=== PATIENT | female | born 1995 | race Caucasian/White ===

== ENCOUNTER 2024-08-20 21:08 | Emergency (ER) | payer MEDICAID, SELFPAY ==
[2024-08-20 21:09] VITALS: BP 142/73; PULSE 139; RESP 20; TEMP 36.9; O2SAT 99; BMI 58.4
[2024-08-20 21:10] VITALS: BP 142/73; PULSE 139; RESP 20; TEMP 36.9; O2SAT 99
--- NOTE | 2024-08-20 21:31 | EDS_ITS ---
HPI <VIRGIE Barney - Last Filed: 08/20/24 21:51> History of Present Illness Chief Complaint: Cough Narrative Narrative: Patient presenting today with a cough she has had over the past 3 weeks. She reports that at times it is productive and she will cough up white phlegm. She reports that she will develop coughing fits that will make her feel short of breath. She is not short of breath at rest. Her daughter was recently sick with similar symptoms. She denies a PMH of any chronic medical conditions. She denies fevers, chills, chest pain, and abdominal pain. PFSH <VIRGIE Barney - Last Filed: 08/20/24 21:51> PFSH Medical History Depression Anxiety PTSD (post-traumatic stress disorder) Polycystic ovary syndrome Hypertension Home Medications ?Medication ?Instructions ?Recorded ?Last Taken ?Type hydrocodone-homatropine 5 mg-1.5 5 ml PO Q6H 4 days #80 mL 08/20/24 Unknown Rx mg/5 mL (5 mL) oral syrup (Hycodan) Allergy/AdvReac Type Severity Reaction Status Date / Time latex Allergy Rash Verified 08/20/24 21:11 milk AdvReac Upset Verified 08/20/24 21:11 Stomach Surgical History History of delivery Social History Smoking Status: Never smoker ROS <VIRGIE Barney - Last Filed: 08/20/24 21:51> ROS ED Constitutional Constitutional ED: Denies chills or fever(s) Cardiovascular Cardiovascular: Denies chest pain Respiratory/Chest Respiratory/Chest: Reports cough; Denies dyspnea or wheezing Gastrointestinal Gastrointestinal: Denies abdominal pain, nausea or vomiting Musculoskeletal Musculoskeletal: Denies arthralgias or myalgias Integumentary Denies rash Neurologic Neurologic: Denies weakness EXAM <VIRGIE Barney - Last Filed: 08/20/24 21:51> Physical Exam Const Vital Signs: 08/20/24 21:09 08/20/24 21:10 08/20/24 21:49 Temperature 98.4 F 98.4 F Temperature Source Oral Oral Pulse Rate 139 H 139 H Respiratory Rate 20 H 20 H 18 Blood Pressure 142/73 H 142/73 H Blood Pressure Mean 96 96 Pulse Ox 99 99 Oxygen Delivery Method Room Air Room Air Room Air Positive well nourished, well developed and no apparent distress General Appearance ED: well developed HEENT Reports normocephalic and head/scalp atraumatic Mouth ED: Yes moist mucous membranes normal Eyes PERRL and EOMs intact bilaterally Neck full ROM and supple Chest Wall inspection of chest normal Resp normal respiratory effort and clear to auscultation bilaterally Cardio regular rate and regular rhythm GI soft to palpation, non-tender, non-distended and no masses Back/Spine normal ROM and normal to inspection Extremity normal to inspection and full ROM Neuro oriented x3, CN's II-XII intact bilaterally, moves all extremities, no focal motor deficits and no sensory deficits noted Sensorium / Orientation: awake and alert Psych mental status grossly normal and thought process normal Skin no rashes or lesions noted and no wounds <Dr. Ash Lopez MD - Last Filed: 08/20/24 22:36> Physical Exam Const Vital Signs: 08/20/24 21:09 08/20/24 21:10 08/20/24 21:49 Temperature 98.4 F 98.4 F Temperature Source Oral Oral Pulse Rate 139 H 139 H Respiratory Rate 20 H 20 H 18 Blood Pressure 142/73 H 142/73 H Blood Pressure Mean 96 96 Pulse Ox 99 99 Oxygen Delivery Method Room Air Room Air Room Air [facility] <VIRGIE Barney - Last Filed: 08/20/24 21:51> [facility] Narrative Medical decision making narrative: Patient presenting today with a cough she has had over the past 3 weeks. She is nontoxic-appearing. She initially is tachycardic, her vitals will be repeated. She does not appear to be in any respiratory distress and is sitting comfortably. Her lungs are clear to auscultation. Chest x-ray will be obtained to rule out pneumonia. Radiography Diagnostic Testing: Clinical Impression(s) from Imaging Studies Chest X-Ray 08/20/24 21:50 IMPRESSION: No radiographic evidence of acute cardiopulmonary disease. Electronically Signed: Girish Ramirez DO at 22:06 EST , <Dr. Ash Lopez MD - Last Filed: 08/20/24 22:36> [facility] Narrative Medical decision making narrative: Patient presenting today with a cough she has had over the past 3 weeks. She is nontoxic-appearing. She initially is tachycardic, her vitals will be repeated. She does not appear to be in any respiratory distress and is sitting comfortably. Her lungs are clear to auscultation. Chest x-ray will be obtained to rule out pneumonia. I have personally performed a face to face assessment of the patient and have reviewed the KATHLEEN Note. I performed a substantive portion of the visit including all aspects of the following. My dubois findings include: History is 29-year-old female with 3 weeks ago had URI symptoms with a low-grade fever 100. Said a persistent cough since that time. Clear phlegm. No hemoptysis. Only chest pain is chest wall with coughing. No leg pain or swelling. No history of DVT or PE. States she has tried [id number] cough syrup without much relief. She has had no evaluation for this. Exam is [29-year-old female sitting upright in bed. Vital signs are stable. Initial pulse in triage 139 and currently is about 110. H EENT exam normal. Posterior pharynx moist and pink. TMs normal. Neck nontender JVD. No lymphadenopathy. Lungs dry cough. No rales, rhonchi or wheezing. Equal symmetrical. No respiratory distress. Heart tachycardic 110 no murmur. Chest wall and ribs she has reproducible tenderness on her left lower anterior rib cage and sternum coughing. No ecchymosis. No bruising. No crepitus. Abdomen soft nontender. Moving all 4 extremities. Calves are nontender that edema or cords. Neurologically patient is awake and alert no focal motor deficits. Answer questions following commands. Back nontender.] Medical Decision Making [patient with URI symptoms viral pneumonia chest x-ray pending. I will think she needs any labs. Clinically looks well.] Other additions or changes: [Treated as viral URI with cough. Treated with Hycodan with codeine for the cough. Outpatient follow-up with not improving. Return if worse.] Radiography Chest X-Ray - ED: 2 View, Read by ED Physician, Lungs, Mediastinum, Bony Structures, No Acute Disease and Chronic Changes Diagnostic Testing: Clinical Impression(s) from Imaging Studies Chest X-Ray 08/20/24 21:50 IMPRESSION: No radiographic evidence of acute cardiopulmonary disease. Electronically Signed: Girish Ramirez, DO at 22:06 EST , Chest x-ray, 2 views, AP and lateral, interpreted myself and radiologist shows no acute abnormality. No pneumonia. No effusion. Normal cardiac silhouette. Normal lung guerrero. Discharge Plan Triage Chief Complaint: Cough ED Midlevel Provider: Melinda Teran ED Provider: Ash Lopez Dx/Rx/DC Orders Clinical Impression: Viral URI Instructions: ED URI, Viral, No Abx (Adult) Prescriptions: New hydrocodone-homatropine [Hycodan] 5-1.5 mg/5 mL (5 mL) syrup 5 ml PO Q6H 4 Days Qty: 80 0RF Primary Care Provider: Care Physician,No Primary Referrals: [facility] Doctor,Out of [Non-Staff] - Activity Restrictions/Additional Instructions: Hycodan cough syrup to help you decrease the cough. This has codeine in it do not drink alcohol or drive with it. Plenty of fluids and rest. Follow-up with your doctor if not improving or return if feeling worse. I think this is just a viral respiratory infection with a chronic cough. This should progressively improve. Print Language: Tunisian Disposition Disposition: Home, Self Care
[2024-08-20 21:49] VITALS: RESP 18
--- NOTE | 2024-08-20 21:50 | RAD_ITS ---
EXAM: XR CHEST, 2 VIEWS CLINICAL INDICATION: cough TECHNIQUE: Frontal and lateral views of the chest. COMPARISON: No relevant prior studies available. FINDINGS: LUNGS AND PLEURAL SPACES: No significant abnormality. No consolidation or edema. No pneumothorax. No effusion. HEART: No significant abnormality. Cardiac silhouette not enlarged. MEDIASTINUM: Central airways and mediastinal contour are unremarkable. BONES/JOINTS: No significant abnormality. No acute fracture. SOFT TISSUES: No significant abnormality. RAD/Chest PA and Lateral IMPRESSION: No radiographic evidence of acute cardiopulmonary disease. Electronically Signed: Girish Ramirez DO at 22:06 EST ,
[2024-08-20 22:10] VITALS: BP 109/69; PULSE 108; RESP 18; TEMP 36.9; O2SAT 98
[2024-08-20] MEDS: guaiFENesin/Codeine 5 ML UDC 10 ML PO (22:50)
== END 2024-08-20 22:55 | disposition home or self-care (01) ==
PROVIDERS: Emergency Provider Emergency Medicine; Visit Provider Emergency Medicine
DX: J06.9 Acute upper respiratory infection, unspecified (principal)
CPT/HCPCS: 71046; 99282

== ENCOUNTER 2025-04-11 19:13 | Emergency (ER) | payer MEDICAID, SELFPAY ==
[2025-04-11 19:14] VITALS: BP 141/109; PULSE 85; RESP 18; TEMP 36.1; O2SAT 97; BMI 58.8
[2025-04-11 21:16] VITALS: BP 154/109; PULSE 81; RESP 18; O2SAT 100
--- NOTE | 2025-04-11 22:23 | CT_ITS ---
PROCEDURE: BRAIN/HEAD WITHOUT CONTRAST 04/11/2025 REASON FOR EXAM: DIZZINESS TECHNIQUE: BRAIN/HEAD WITHOUT CONTRAST Coronal and Sagittal reconstruction series were provided. One or more dose reduction techniques were used (e.g., Automated exposure control, adjustment of the mA and/or kV according to patient size, use of iterative reconstruction technique. RADIATION DOSE SUMMARY: CTDlvol: 44.99 mGy DLP: 947.97 mGycm COMPARISON: None. FINDINGS: No acute intracranial hemorrhage, extra-axial collection, mass effect or evidence of acute infarct. Ventricles and subarachnoid spaces are normal in size. Orbital contents are unremarkable. Intact skull base and calvarium. Clear paranasal sinuses and mastoid air cells. CT/Brain/Head without Contrast IMPRESSION: Unremarkable CT head. Reading Location: [id number]
[2025-04-11] MEDS: 0.9% Normal Saline (1000mL) 1,000 ML 999 ML IV (22:43)
[2025-04-11 22:45] LABS: Hematocrit 40.0 % (37-47); Hemoglobin 13.5 g/dL (12.0-15.0); Immature Granulocytes Count 0.030 X10^3/uL (0.0-0.0); Mean Corp Hgb Conc 33.8 g/dL (32-36); Mean Corpuscular Volume 95.2 fL (81-99); Mean Platelet Vol. 9.4 fl (6.2-12.0); NRBC Flagged by Analyzer 0 % (0-5); POSITIVE MORPHOLOGY YES; Platelet Count 267 K/mm3 (150-450); RBC Distribution Width CV 13.0 % (11.6-14.6); RBC Distribution Width SD 45.5 fl (35.1-43.9); Red Blood Count 4.20 M/mm3 (4.2-5.4); White Blood Count 6.3 K/mm3 (4.4-11.0)
[2025-04-11 22:46] LABS: Differential Indicated SCAN CRITERIA MET
[2025-04-11 23:00] VITALS: BP 132/92; PULSE 74; RESP 18; O2SAT 100
[2025-04-11 23:03] LABS: Internal QC Validated? YES +Cl - CLEAR BKGD; Pregnancy, Serum, hCG Quali. NEGATIVE Negative; Record Kit Lot#, Serum Preg. 0000947241
[2025-04-11 23:46] LABS: Anion Gap 12 (5-15); BUN 11 mg/dL (4-19); BUN/Creat Ratio 13.2 RATIO (10-20); Calcium,Total 8.9 mg/dL (7.6-11.0); Carbon Dioxide 24.5 mmol/L (21.0-32.0); Chloride 103 mmol/L (98-108); Estimated Creatinine Clearance 157.30 ml/min (50-250); Glucose 87 mg/dL (70-99); Potassium 4.1 mmol/L (3.3-5.1)
--- NOTE | 2025-04-11 23:55 | EX.ED.DYSGE1 ---
HPI History of Present Illness Chief Complaint: Dizziness Informant: patient Narrative Narrative: Patient is a 30-year-old female with past medical history of anxiety and depression as well as hypertension. She states over the last 5 to 7 days she has noticed dizziness which she describes as more as an off-balance or sense of motion. She states it improves if she is at rest but seems to worsen with changes in position or head movement. She states there has been no recent bouts of vomiting or diarrhea she denies any recent head injury and denies any family history of brain mass or aneurysm. However as the symptoms have not resolved over the last few days she presents for evaluation [facility] Medical History Depression Anxiety PTSD (post-traumatic stress disorder) Polycystic ovary syndrome Hypertension Home Medications ?Medication ?Instructions ?Recorded ?Last Taken ?Type hydrocodone-homatropine 5 mg-1.5 1 tab PO Q6H PRN cough 4 days #16 08/21/24 Unknown Rx mg tablet tabs diazepam 5 mg tablet (Valium) 5 mg PO TID PRN Dizziness/vertigo 04/11/25 Unknown Rx 5 days #15 tabs Allergy/AdvReac Type Severity Reaction Status Date / Time latex Allergy Rash Verified 04/11/25 19:14 milk AdvReac Upset Verified 04/11/25 19:14 Stomach Family History no significant family his Surgical History History of delivery Social History Smoking Status: Current some day smoker tobacco type: e-cigarettes ROS ROS ED Constitutional Constitutional ED: Denies chills or fever(s) Eyes Eyes: Denies change in vision ENT ENT ED: Reports other Details: Negative tinnitus ; Denies ear pain or sore throat Cardiovascular Cardiovascular: Denies chest pain Respiratory/Chest Respiratory/Chest: Denies cough or dyspnea Gastrointestinal Gastrointestinal: Reports nausea; Denies abdominal pain, diarrhea or vomiting Genitourinary Genitourinary ED: Denies dysuria Musculoskeletal Musculoskeletal: Denies myalgias Integumentary Denies rash Neurologic Neurologic: Reports other Details: Positive dizziness ; Denies headache(s) Hematologic/Lymphatic Hematologic/Lymphatic: Denies easy bleeding or easy bruising EXAM Physical Exam Const Vital Signs: 04/11/25 19:14 04/11/25 21:16 04/11/25 23:00 Temperature 96.9 F L Temperature Source Temporal Pulse Rate 85 81 74 Respiratory Rate 18 18 18 Blood Pressure 141/109 H 154/109 H 132/92 H Blood Pressure Mean 119 124 105 Pulse Ox 97 100 100 Oxygen Delivery Method Room Air Room Air Room Air 04/11/25 23:56 Temperature 97 F L Temperature Source Pulse Rate 69 Respiratory Rate 18 Blood Pressure 125/75 H Blood Pressure Mean 91 Pulse Ox 96 Oxygen Delivery Method Positive well nourished, well developed and obese General Appearance ED: well developed; Negative for pallor Nutritional Appearance: obese HEENT HEENT Narrative: Normocephalic atraumatic Bilateral canals and TMs are normal Eyes PERRL and EOMs intact bilaterally General Eye ED: Negative for scleral icterus Neck supple Resp normal respiratory effort and clear to auscultation bilaterally Cardio regular rate and regular rhythm GI normal to inspection, nondistended, normoactive bowel sounds, non-tender, non-distended and no masses Auscultation: normoactive bowel sounds Palpation: soft Extremity normal to inspection Neuro oriented x3, CN's II-XII intact bilaterally and no sensory deficits noted Neuro Narrative: GCS of 15 Cranial nerves II through XII are grossly intact there are no focal neurologic deficits No pronator drift no dysmetria no truncal ataxia There is mild horizontal nystagmus noted Positive Hallpike Greenfield exam on right Sensorium / Orientation: alert Motor Exam: strength 5/5 throughout Psych mental status grossly normal Skin no rashes or lesions noted and no wounds General Skin Exam: Negative for jaundice or pallor MDM MDM MDM Narrative Medical decision making narrative: Patient arrived to the ER hypertensive but otherwise with stable vitals. She reported 5 to 7 days of intermittent dizziness described as a sense of motion that worsened with changes in position or head motion. In order to ensure that the symptoms were not related to acute blood loss anemia acute kidney injury or potential brain mass or spontaneous subarachnoid or subdural hemorrhage I did elect to perform basic laboratory studies with head CT. Labs and head CT revealed no acute finding. After receiving IV hydration as well as Valium patient had resolution of her symptoms and could ambulate with a steady gait. Therefore with negative workup and improvement of symptoms and the fact she is able to ambulate without issues there is no need for further intervention in the ER and she is otherwise safe for discharge History & Record Review Discussion w/independent historian: Patient Lab Data Attestation: I reviewed the patient's lab results. Labs: Laboratory Results - last 24 hr 04/11/25 22:38 WBC 6.3 RBC 4.20 Hgb 13.5 Hct 40.0 MCV 95.2 MCH 32.1 H MCHC 33.8 RDW Std Deviation 45.5 H RDW Coeff of Stephanie 13.0 Plt Count 267 MPV 9.4 Immature Gran % (Auto) 0.500 Neut % (Auto) 46.1 L Lymph % (Auto) 42.2 H Ballard % (Auto) 7.0 Eos % (Auto) 3.6 Baso % (Auto) 0.6 Absolute Neuts (auto) 2.9 Absolute Lymphs (auto) 2.66 Nucleated RBC % 0 Reactive Lymphocytes 1+ Platelet Estimate ADEQUATE RBC Morphology NORM C+C Sodium 140 Potassium 4.1 Chloride 103 Carbon Dioxide 24.5 Anion Gap 12 BUN 11 Creatinine 0.82 Estim Creat Clear Calc 157.30 Est GFR (MDRD) Non-Af 100 BUN/Creatinine Ratio 13.2 Glucose 87 Calcium 8.9 Serum , Qual NEGATIVE Radiography Diagnostic Testing: Clinical Impression(s) from Imaging Studies Brain CT 04/11/25 22:23 IMPRESSION: Unremarkable CT head. Reading Location: [facility] Discharge Plan Triage Chief Complaint: Dizziness ED Provider: Rebel Almazan Dx/Rx/DC Orders Clinical Impression: Peripheral vertigo, Hypertension, Anxiety and depression Instructions: Vestibular Rehab Therapy, ED BPV Vertigo Prescriptions: New diazepam [Valium] 5 mg tablet 5 mg PO TID PRN (Reason: Dizziness/vertigo) 5 Days Qty: 15 0RF No Action hydrocodone-homatropine 5-1.5 mg tablet 1 tab PO Q6H PRN (Reason: cough) 4 Days Qty: 16 0RF Primary Care Provider: Care Physician,No Primary Referrals: Devaughn Robert MD [Med Staff - Active Staff] - Care Physician,No Primary [Primary Care Provider] - Activity Restrictions/Additional Instructions: Your workup is consistent with peripheral vertigo and therefore take the prescribed medication as directed to help control symptoms. Follow-up with your family doctor for repeat evaluation and to discuss potential ENT referral if symptoms persists. Return to the ER should you have any further concern Print Language: Mongolian Disposition Disposition: Home, Self Care Discharge Date/Time: 04/12/25 00:06
[2025-04-11 23:56] VITALS: BP 125/75; PULSE 69; RESP 18; TEMP 36.1; O2SAT 96
[2025-04-12 00:30] LABS: Reactive Lymphocyte 1+; Red Cell Morphology NORM C+C NORMAL (NORM C&C)
== END 2025-04-12 00:06 | disposition home or self-care (01) ==
PROVIDERS: Emergency Provider Emergency Medicine; Visit Provider Emergency Medicine
DX: H81.391 Other peripheral vertigo, right ear (principal); I10 Essential (primary) hypertension; F32.A Depression, unspecified; F41.9 Anxiety disorder, unspecified; F17.290 Nicotine dependence, other tobacco product, uncomplicated; Z79.899 Other long term (current) drug therapy
CPT/HCPCS: 70450; 80048; 84703; 85025; 96360; 99283; A4216